=== PATIENT | male | born 1980 | race Caucasian/White ===

== ENCOUNTER 2019-10-01 13:27 | Emergency (ER) | payer SELFPAY ==
[~2019-10-01] VITALS: Ht 172.7 cm; Wt 81.6 kg
[2019-10-01 13:33] VITALS: Ht 172.7 cm; Wt 81.6 kg
[2019-10-01 14:23] LABS: BASOPHIL % 0.3 % (0-2); RED CELL DISTRIBUTION WIDTH 13.9 % (11.5-14.5)
[2019-10-01 14:31] LABS: PLATELET COUNT 59 x10^3mcL (130-400)
[2019-10-01 14:48] LABS: ALBUMIN 4.1 g/dL (3.4-5.0); ALKALINE PHOSPHATASE 99 U/L (46-116); ALT/SGPT 253 U/L (16-63); AST/SGOT 197 U/L (15-37); BILIRUBIN TOTAL 1.3 mg/dL (0.20-1.00); CALCIUM 8.8 mg/dL (8.5-10.1); CARBON DIOXIDE 25.2 mmol/L (21-32); CHLORIDE SERUM 106 mmol/L (98-107); CREATININE SERUM 0.8 mg/dL (0.7-1.3); GFR1 > 60 mL/min; GLUCOSE SERUM 116 mg/dL (74-106); LIPASE 156 IU/L (73-393); POTASSIUM SERUM 3.6 mmol/L (3.5-5.1); SODIUM SERUM 143 mmol/L (136-145); TOTAL PROTEIN, SERUM 7.6 g/dL (6.4-8.2); TRIGLYCERIDES 102 mg/dL (<150)
[2019-10-01 14:52] LABS: CHOLESTEROL 253 mg/dL (<200); CHOLESTEROL/HDL RATIO 2.8; HDL CHOLESTEROL 90 mg/dL (40-60); T3 TOTAL 1.01 ng/mL
[2019-10-01 15:23] LABS: FREE T4 0.99 ng/dL (0.76-1.46); FREE THYROXINE INDEX 1.9 ug/dL (1.4-4.5); T4(THYROXINE) 6.1 ug/dL (4.7-13.3)
[2019-10-01 15:29] LABS: microscopic required? YES; urine erythrocyte NEGATIVE (NEGATIVE)
[2019-10-01 15:46] LABS: AMPHETAMINE QUAL UR NONE DETECTED (See below)
[2019-10-01 18:25] VITALS: BP 146/83
== END 2019-10-01 18:25 | disposition home or self-care (01) ==
LOC: ED 13:27
PROVIDERS: Specialist
DX: R55 Syncope and collapse (principal); E86.0 Dehydration; K70.9 Alcoholic liver disease, unspecified; I10 Essential (primary) hypertension
CPT/HCPCS: 82962; 83880; 84439; G0480; J7030; Q0092

== ENCOUNTER 2019-10-29 15:38 | Emergency (ER) | payer SELFPAY ==
[~2019-10-29] VITALS: Ht 172.7 cm; Wt 73.5 kg
[2019-10-29 15:40] VITALS: Ht 172.7 cm; Wt 73.5 kg
[2019-10-29 16:46] LABS: BASOPHIL % 0.3 % (0-2); PLATELET COUNT 58 x10^3mcL (130-400); RED CELL DISTRIBUTION WIDTH 14.2 % (11.5-14.5)
[2019-10-29 17:03] LABS: CALCIUM 9.6 mg/dL (8.5-10.1); CHLORIDE SERUM 101 mmol/L (98-107); CREATININE SERUM 0.7 mg/dL (0.7-1.3); GFR1 > 60 mL/min; GLUCOSE SERUM 204 mg/dL (74-106); POTASSIUM SERUM 3.2 mmol/L (3.5-5.1); SODIUM SERUM 140 mmol/L (136-145)
[2019-10-29 17:07] LABS: ALBUMIN 4.6 g/dL (3.4-5.0); ALKALINE PHOSPHATASE 89 U/L (46-116); ALT/SGPT 56 U/L (16-63); AST/SGOT 45 U/L (15-37); BILIRUBIN TOTAL 1.1 mg/dL (0.20-1.00)
[2019-10-29 17:24] LABS: TOTAL PROTEIN, SERUM 8.4 g/dL (6.4-8.2)
[2019-10-29 18:22] LABS: microscopic required? YES; urine erythrocyte NEGATIVE (NEGATIVE)
[2019-10-29 18:54] LABS: AMPHETAMINE QUAL UR NONE DETECTED (See below)
[2019-10-29 21:08] VITALS: BP 119/75
== END 2019-10-29 21:08 | disposition home or self-care (01) ==
LOC: ED 15:38
PROVIDERS: Specialist
DX: F10.239 Alcohol dependence with withdrawal, unspecified (principal); I10 Essential (primary) hypertension
CPT/HCPCS: G0480; J2060; J2405; J3411; J3475; J3490; J7030